=== PATIENT | female | born 1990 ===

== ENCOUNTER 2019-03-20 12:45 | Inpatient (IN) | payer OTHER ==
[~2019-03-20] VITALS: Ht 167.6 cm; Wt 78.5 kg
[2019-04-03] MEDS ORDERED: OBSTETRIX DHA1 EACH PO (07:53)
[2019-04-03] MEDS ORDERED: SYNTHROID50 MCG PO (07:53)
[2019-04-04] MEDS ORDERED: LEVOTHYROXINE50 MCG PO (11:18)
[2019-04-04] MEDS ORDERED: SENOKOT-S TABL1 EACH PO (11:18)
== END 2019-04-04 13:16 | disposition home or self-care (01) | DRG 807 ==
LOC: O/R 12:45 → LDR 04-02 20:20 → OB/GYN 04-02 23:09 → O/R 04-05 12:45 → EDBD 04-05 12:45
PROVIDERS: ADMIT Obstetrics & Gynecology
PROC: 10E0XZZ Delivery of Products of Conception, External Approach (ICD-10-PCS; principal; 2019-04-02)
PROC: 0HQ9XZZ Repair Perineum Skin, External Approach (ICD-10-PCS; 2019-04-02)
PROC: 4A1HXCZ Monitoring of Products of Conception, Cardiac Rate, External Approach (ICD-10-PCS; 2019-04-02)
DX: O70.0 First degree perineal laceration during delivery (principal); Z37.0 Single live birth; Z3A.39 39 weeks gestation of pregnancy

== ENCOUNTER 2019-03-30 13:16 | Outpatient (CLI) | payer OTHER | END 2019-03-30 15:02 | disposition home or self-care (01) | LOC: NST 13:16 | DX: Z34.83 Encounter for supervision of other normal pregnancy, third trimester (principal) ==

== ENCOUNTER 2019-05-18 05:00 | Day surgery (SDC) | payer OTHER ==
[~2019-05-18 05:00] MED LIST: LEVOTHYROXINE50 MCG PO; OBSTETRIX DHA1 EACH PO; SENOKOT-S TABL1 EACH PO; SYNTHROID50 MCG PO
== END 2019-05-18 14:35 | disposition home or self-care (01) ==
LOC: CIR.AMB 05:00
DX: Z30.2 Encounter for sterilization (principal)